=== PATIENT | female | born 1990 | race African-American/Black ===

== ENCOUNTER 2017-02-25 06:55 | Inpatient (IN) | payer OTHER ==
[~2017-02-25] VITALS: Ht 172.7 cm; Wt 82.0 kg
[2017-02-25] MEDS ORDERED: EPHEDrine SULFATE 50 MG/5 ML SYG ONE (07:00)
[2017-02-25 07:15] VITALS: Ht 172.7 cm; Wt 82.0 kg
[2017-02-25] MEDS ORDERED: LACTATED RINGER'S 1,000 ML IV SCH (07:19)
[2017-02-25] MEDS ORDERED: MISOPROSTOL 200 MCG TAB PR PRN ×2 (07:30→14:00)
[2017-02-25] MEDS ORDERED: METHYLERGONOVINE 0.2 MG INJ IM PRN ×2 (07:30→14:00)
[2017-02-25] MEDS ORDERED: OXYTOCIN 30 UNITS/LR 500 ML IV SCH ×2 (07:30)
[2017-02-25] MEDS ORDERED: LIDOCAINE 1% (MPF) 30 ML INJ INJ PRN (07:30)
[2017-02-25] MEDS ORDERED: CARBOPROST 250 MCG INJ IM PRN ×2 (07:30→14:00)
[2017-02-25] MEDS ORDERED: CLINDAMYCIN 900 MG/D5W (PMX) 50 ML IVPB SCH (07:30)
[2017-02-25] MEDS ORDERED: BUTORPHANOL 2 MG INJ IV PRN (07:30)
[2017-02-25] MEDS ORDERED: OXYTOCIN 30 UNITS/LR 500 ML IV PRN ×2 (07:30→14:00)
[2017-02-25] MEDS ORDERED: PRENAT PO (07:35)
--- NOTE | 2017-02-25 07:59 | TRIAGE ---
OB Triage Datetime Report Generated by CPN: 02/25/2017 07:58 Datetime: 02/25/2017 07:38 Assessment Type: Admission Assessment Vaginal Bleeding: None Maternal Assessment Level of Consciousness: Fully Conscious DTR's/Clonus: DTRs 2+; No Clonus Headache: Denies Blurred Vision: No Respiratory Effort: Unlabored; Regular Rhythm; Equal Expansion Breath Sounds, Left: Clear and Equal Breath Sounds, Right: Clear and Equal Nausea/Vomiting: Denies RUQ Epigastric Pain: Denies Facial Edema: None Fall Risk Assessment History of Falling: (0) No Secondary Diagnosis: (0) No Ambulatory Aid: (0) Bedrest/Nurse Assist IV Therapy: (0) No Gait: (0) Normal/Bedrest/Immobile Mental Status: (0) Oriented to Own Ability Fall Score: 0 Fall Risk Score Definition: No Risk: No action required Labor Evaluation Frequency: 3-4 Heart Rate FHR Baseline Rate: 135 Variability: Moderate 6-25 bpm Accelerations: 10X10 Decelerations: None Category: Category I Pain Assessment Pain Scale: 8 Pain Presence: Intermittent Pain Type: Cramping; Contraction Pain Location: Abdomen Pain Goal: 3 Membrane Status: Bulging Nitrazine: Positive Datetime: 02/25/2017 07:37 Stage of : OB Triage Datetime: 02/25/2017 07:30 Time of Arrival: 02/25/2017 07:00 EGA: 33.1 Arrived By: Ambulance Datetime: 02/25/2017 07:16 Membrane Status: Intact Datetime: 02/25/2017 07:15 Stage of : OB Triage Vaginal Exam Dilatation (cms): 4.0 Effacement (%): 100 Station: -3 Exam By: S MARTÍNEZ Vaginal Bleeding: Scant Cervix, Consistency: Soft Cervix, Position: Midposition Datetime: 02/25/2017 07:05 Vaginal Exam Dilatation (cms): 4.5 Membrane Status: Ruptured Membranes Ruptured Date/Time: 02/25/2017 02:45 Membranes Rupture Method: Spontaneous Amniotic Fluid Color: Clear Nitrazine: Positive ROM Test Kit: COLLECTED Datetime: 02/25/2017 07:00 Assessment Type: Triage Maternal Assessment Level of Consciousness: Fully Conscious DTR's/Clonus: DTRs 2+; No Clonus Headache: Denies Blurred Vision: No Respiratory Effort: Labored Breath Sounds, Left: Clear and Equal Breath Sounds, Right: Clear and Equal Nausea/Vomiting: Denies RUQ Epigastric Pain: Denies Lower Extremities Edema: None Upper Extremities Edema: None Facial Edema: None Fall Risk Assessment History of Falling: (0) No Secondary Diagnosis: (0) No Ambulatory Aid: (0) Bedrest/Nurse Assist IV Therapy: (0) No Comment: ARM HAS SOME OLD CUT WILSON Datetime: 02/25/2017 06:55 Time of Arrival: 02/25/2017 06:52 Arrived By: Stretcher Arrived From: Other Hospital Chief Complaint: RUPTURED MEMBRANE AT 0245, CONTRACTIONS Movement: Present Contractions: Irregular Rupture of Membranes: Ruptured Vaginal Bleeding: None Vaginal Discharge: Present Patient Complaints: Contractions Time Provider Notified: 02/25/2017 07:00 Provider Notified: SABAS Initial Plan: EFM, ROM PLUS, NITRIZINE, U/S FOR EFW
[2017-02-25] MEDS ORDERED: LACTATED RINGER'S 1,000 ML IV PRN (08:00)
[2017-02-25 08:06] LABS: ADD SCAN DIFF NO
[2017-02-25] MEDS ORDERED: LACTATED RINGER'S 1,000 ML IV ONE (08:07)
[2017-02-25 08:12] LABS: BASOPHILS % 0.3 % (0.0-2.0); EOSINOPHILS # 0.2 10^3/ul (0.0-0.5); EOSINOPHILS % 1.9 % (0.0-7.0); HEMATOCRIT 37.9 % (37.0-47.0); HEMOGLOBIN 13.1 g/dl (12.0-16.0); LYMPHOCYTES # 1.8 10^3/ul (0.8-2.9); LYMPHOCYTES % 16.1 % (15.0-51.0); MEAN CORPUSCULAR HEMOGLOBIN 30.8 pg (29.0-33.0); MEAN CORPUSCULAR HGB CONC 34.6 g/dl (32.0-37.0); MEAN CORPUSCULAR VOLUME 89.2 fl (82.0-101.0); MEAN PLATELET VOLUME 12.8 fl (7.4-10.4); MONOCYTE # 0.9 10^3/ul (0.3-0.9); MONOCYTES % 8.7 % (0.0-11.0); NEUTROPHIL # 7.8 10^3/ul (1.6-7.5); NEUTROPHILS % 71.5 % (39.0-77.0); PLATELET COUNT 213 10^3/UL (140-415); RED BLOOD COUNT 4.25 10^6/ul (4.20-5.40); WHITE BLOOD COUNT 10.9 10^3/ul (4.8-10.8)
--- NOTE | 2017-02-25 08:25 | RADRPT ---
PROCEDURE: US OB. CLINICAL INDICATION: Size and dates TECHNIQUE: Multiple sonographic images of the pelvis and gravid uterus were obtained. The images were reviewed on a PACS workstation. COMPARISON: No prior studies are available for comparison. FINDINGS: There is a single viable intrauterine gestation. Cardiac activity is present with 152 beats per min sami. There is a breech presentation. The placenta is left lateral. There is no evidence for an abruption or placenta previa. Measurements were made in order to determine age. The results are as follows: BPD =8.4 cm HC =30.3 cm AC =29.7 cm FL =6.0 cm Estimated gestational age of approximately 33 weeks and 1 day based on ultrasound measurements. Clinical age: 33 weeks and 1 day. The estimated date of delivery is 04/14/2017, based on ultrasound measurements. The EFW = 2090 g, 36%, based on LMP age. RPTAT: AA IMPRESSION: Single viable intrauterine gestation of approximately 33 weeks and 1 day based on ultrasound measur ements. .Paresh Rodriguez MD, Date Time Electronically viewed and signed by .Paresh Rodriguez MD, on 02/25/2017 08:25 .S/
[2017-02-25] MEDS ORDERED: CITRIC ACID/SODIUM CITRATE 15 ML CUP PO ONE (08:30)
[2017-02-25] MEDS ORDERED: FAMOTIDINE 20 MG INJ IV ONE (08:30)
[2017-02-25] MEDS ORDERED: METOCLOPRAMIDE 10 MG INJ IV ONE (08:30)
[2017-02-25 08:31] LABS: INR 0.86; PARTIAL THROMBOPLASTIN TIME 28.6 Sec (25.0-35.0); PROTIME 11.7 Sec (12.2-14.2); PT RATIO 0.9
[2017-02-25] MEDS ORDERED: morphine SULFATE/PF (10 MG/10 ML) INJ ONE (08:44)
[2017-02-25] MEDS ORDERED: FENTAnyl 50 MCG/ML VIAL ONE (08:44)
[2017-02-25] MEDS ORDERED: PHENYLephrine (100 MCG/ML) 5ML SYG ONE (09:03)
[2017-02-25] MEDS ORDERED: OXYTOCIN 30 UNITS/LR 500 ML IV ONE (09:27)
[2017-02-25 09:35] LABS: CBV Base Excess -2.8 mmol/L; CBV COHb 1.1 %; CBV Oxygen Sat 70.8 mmHG; CBV Total Hemglobin 12.7 g/dl; Cord Blood Venous AADO2 73.6 mmHg; Cord Blood Venous pO2 29.8 mmHG (15.0-45.0); Fraction OxyHgb Cord Venous 69.5 %; MODE ROOM AIR; MetHgb Cord Venous 0.8 %; Sample Type CBV
[2017-02-25] MEDS ORDERED: ONDANSETRON 4 MG INJ IV PRN ×2 (10:00)
[2017-02-25] MEDS ORDERED: HYDROmorphONE 1 MG/ML SYG IV PRN ×2 (10:00)
[2017-02-25] MEDS ORDERED: ZOLPIDEM 5 MG TAB PO PRN (10:00)
[2017-02-25] MEDS ORDERED: DIPHENHYDRAMINE 50 MG INJ IV PRN (10:00)
[2017-02-25] MEDS ORDERED: PROCHLORPERAZINE 10 MG INJ IV PRN ×2 (10:00)
[2017-02-25] MEDS ORDERED: MEPERIDINE 25 MG INJ IV PRN (10:00)
[2017-02-25] MEDS ORDERED: KETOROLAC 30 MG INJ IV PRN (10:00)
[2017-02-25] MEDS ORDERED: FENTAnyl 50 MCG/ML VIAL IV PRN (10:00)
[2017-02-25] MEDS ORDERED: HYDROmorphONE (0.2 MG/ML) 10ML SYG IV PRN (10:00)
[2017-02-25] MEDS ORDERED: NALOXONE (0.4 MG/ML) INJ IV PRN (10:00)
[2017-02-25 10:05] LABS: ADD UMIC YES; UR BILIRUBIN (Dip) NEGATIVE (NEGATIVE); UR BLOOD (Dip) 2+ (NEGATIVE); UR CLARITY CLEAR (CLEAR); UR COLOR LT. YELLOW (YELLOW); UR GLUCOSE (Dip) NEGATIVE (NEGATIVE); UR KETONES (Dip) NEGATIVE (NEGATIVE); UR LEUKOCYTE ESTERASE (Dip) 1+ (NEGATIVE); UR NITRITE (Dip) NEGATIVE (NEGATIVE); UR TOTAL PROTEIN (Dip) NEGATIVE (NEGATIVE); UR UROBILINOGEN (Dip) 1.0 E.U./dL (0.1-1.0)
--- NOTE | 2017-02-25 10:12 | HP ---
DATE OF ADMISSION: 02/25/2017 HISTORY OF PRESENT ILLNESS: The patient is a 26-year-old G1, P0, who presents at 33-1/2 weeks, liz sfer of care from [facility] for labor. The patient has had no care during the . She presented to [facility] complaining of uterine contractions. The patient was subsequently transferred from [facility] to [facility]. Upon exam ination, the patient was found to be initially 4 cm dilated and completely effaced, with a bulging b ag. Ultrasound was done which showed the infant was in breech presentation. The patient was having regular uterine contractions and advanced labor. The patient had cervical changes to 5 cm. The pa tient ruptured, fluid in the vagina. At this point the patient consented for a primary sec tion. PAST MEDICAL HISTORY: None. PAST SURGICAL HISTORY: None. OB HISTORY: None. examination was normal. PHYSICAL EXAMINATION: HEART: Regular rhythm. LUNGS: Clear to auscultation bilaterally. ABDOMEN: Soft. No rebound or guarding. Fundal height is 34 cm. EXTREMITIES: There is no edema. GENITALIA: On examination the patient is 5 cm, feet in the vagina, ruptured. Sullivan is category 1 tr acing. ASSESSMENT: This is a 26-year-old with no care at 33-1/2 weeks, with PPROM, in active labo r, breech presentation. The patient was consented for primary section. The risks and benef its were discussed. The risks of infection, bleeding, damage to organs, plus need for blood transfu fariba were all discussed with the patient. Patient understood the risks and consented to the procedu re. Will take the patient to the OR for primary section. Dictated By: JUANA HOLLINGSWORTH MD /NTS Conf#: [id number] DID#: [id number]
--- NOTE | 2017-02-25 10:20 | OPR ---
DATE OF OPERATION: 02/25/2017 PREOPERATIVE DIAGNOSES: 1. Intrauterine at 33-1/2 weeks. 2. No care. 3. Active labor, breech presentation, premature rupture of membranes. POSTOPERATIVE DIAGNOSES: 1. Intrauterine at 33-1/2 weeks. 2. No care. 3. Active labor, breech presentation, premature rupture of membranes. PROCEDURE PERFORMED: Primary low transverse section. SURGEON: Juana Hollingsworth MD PAINT PREP TECHNICIAN: Clay Denise MD ANESTHESIOLOGIST: Genesis Morgan MD FINDINGS: 1. Viable in breech presentation. 2. Normal tubes and ovaries. COMPLICATIONS: None. SPECIMENS: Placenta and cord gases. ESTIMATED BLOOD LOSS: 600 mL. INDICATIONS: The patient is a 26-year-old G1, P0, who presents at 33-1/2 weeks in labor. The patie nt has had no care and was found to be in active labor, 4 to 5 cm, rupture of membranes, wi th footling breech in the vagina. The patient was consented for primary section. DESCRIPTION OF PROCEDURE: The patient was taken to the operating room where spinal was found to be adequate. The patient was then prepped, draped in normal sterile fashion. ID was confirmed. Using a scalpel, a Pfannenstiel incision made, incision taken down to the underlying fascia. The fascia nicked in the midline and extended laterally in both directions using bimanual extension. The fasci a was taken off the rectus muscle superiorly. Midline identified, peritoneum entered bluntly. Blad miguel blade placed in. Low segment incision made on the uterus. Uterine incision was then extended w ith manual extension. The infant was then delivered via breech extraction without any complications . Cord gases taken, cord blood taken. Placenta was then delivered. Uterus exteriorized, cleared o f all blood clots and debris. Uterine incision was closed with 1 Monocryl in running fashion. A se cond imbricating layer was also placed and the uterus placed back in abdominal cavity. The uterine incision was clean, dry and intact. The blood was cleared from the gutters. On second look, the ut erine incision was still clean, dry and intact. The rectus muscles and peritoneum were brought back together in the midline using 2-0 Vicryl. The fascia was closed with 0 Vicryl. The subcutaneous f at was closed with 2-0 plain. The skin was stapled. The patient tolerated the procedure well. Lap, needle counts were correct x2. The patient was stable to recovery. Dictated By: JUANA HOLLINGSWORTH MD /WANDER Conf#: [id number] DID#: [id number]
[2017-02-25 11:46] LABS: BARBITURATES Negative (NEGATIVE); BENZODIAZEPINES Negative (NEGATIVE); CANNABINOIDS Positive (NEGATIVE); COCAINE Negative (NEGATIVE); OPIATES Negative (NEGATIVE)
[2017-02-25 12:36] VITALS: BP 116/74; PULSE 68; RESP 20
[2017-02-25] MEDS: LACTATED RINGER'S 1,000 ML IV SCH ×2 (13:53→19:21)
[2017-02-25] MEDS ORDERED: LANOLIN 7 GM TUBE TOP PRN (14:00)
[2017-02-25] MEDS ORDERED: IBUPROFEN 800 MG TAB PO SCH (14:00)
[2017-02-25] MEDS ORDERED: ACETAMINOPHEN/CODEINE #3 TAB PO PRN (14:00)
[2017-02-25 14:03] VITALS: BP 123/84; PULSE 67; RESP 18
[2017-02-25] MEDS: OXYTOCIN 30 UNITS/LR 500 ML IV SCH ×2 (15:18→21:46)
[2017-02-25 16:00] VITALS: BP 134/70; PULSE 79; RESP 18
[2017-02-25] MEDS: DIPHENHYDRAMINE 50 MG INJ IV PRN ×2 (16:32→20:54)
[2017-02-25] MEDS: KETOROLAC 30 MG INJ IV PRN (19:22)
[2017-02-25 20:30] VITALS: BP 121/59; PULSE 97; RESP 19
[2017-02-26] MEDS: KETOROLAC 30 MG INJ IV PRN ×2 (01:04→06:24)
[2017-02-26 01:12] VITALS: BP 126/57; PULSE 78; RESP 19
[2017-02-26] MEDS: LACTATED RINGER'S 1,000 ML IV SCH (03:01)
[2017-02-26 05:07] VITALS: BP 118/70; PULSE 103; RESP 19
[2017-02-26 07:48] LABS: ADD SCAN DIFF NO
[2017-02-26 07:55] LABS: ABNORMAL IP MESSAGE 1; BASOPHILS % 0.2 % (0.0-2.0); EOSINOPHILS % 0.2 % (0.0-7.0); HEMATOCRIT 35.3 % (37.0-47.0); HEMOGLOBIN 12.1 g/dl (12.0-16.0); LYMPHOCYTES # 1.2 10^3/ul (0.8-2.9); LYMPHOCYTES % 7.8 % (15.0-51.0); MEAN CORPUSCULAR HEMOGLOBIN 30.6 pg (29.0-33.0); MEAN CORPUSCULAR HGB CONC 34.3 g/dl (32.0-37.0); MEAN CORPUSCULAR VOLUME 89.1 fl (82.0-101.0); MEAN PLATELET VOLUME 12.2 fl (7.4-10.4); MONOCYTE # 1.6 10^3/ul (0.3-0.9); MONOCYTES % 9.9 % (0.0-11.0); NEUTROPHIL # 12.8 10^3/ul (1.6-7.5); NEUTROPHILS % 81.1 % (39.0-77.0); PLATELET COUNT 202 10^3/UL (140-415); RED BLOOD COUNT 3.96 10^6/ul (4.20-5.40); RED CELL DISTRIBUTION WIDTH 13.1 % (11.5-14.5); WHITE BLOOD COUNT 15.8 10^3/ul (4.8-10.8)
[2017-02-26 08:30] VITALS: BP 129/83; PULSE 94
[2017-02-26] MEDS: MULTIVIT/MIN/FOLATE/IRON/PREN TAB PO SCH (09:41)
[2017-02-26] MEDS: ACETAMINOPHEN/CODEINE #3 TAB PO PRN ×2 (09:41→16:54)
[2017-02-26 10:35] LABS: RUBELLA ANTIBODY - IGG 4.53 index
[2017-02-26] MEDS: IBUPROFEN 800 MG TAB PO SCH ×2 (12:32→20:09)
--- NOTE | 2017-02-26 13:08 | QN ---
Documentation Comment POD #1 s/p primary c/s for breech, active labor, 33 weeks; No PNC. Baby is in NICU. Pt is doing well with good pain management. + flatus. T=98.0 BP 129/83 Dressing clean, dry and intact. Lochia minimal. Ext NT, no edema. P: Continue care. MACKENZIE CEDILLO MD Feb 26, 2017 13:08
[2017-02-26 20:09] VITALS: BP 120/71; PULSE 93
[2017-02-27] MEDS: ACETAMINOPHEN/CODEINE #3 TAB PO PRN ×3 (00:40→15:56)
[2017-02-27 04:05] VITALS: BP 122/77
[2017-02-27] MEDS: DIPHENHYDRAMINE 50 MG CAP PO PRN ×2 (04:50→17:59)
[2017-02-27] MEDS: IBUPROFEN 800 MG TAB PO SCH ×3 (05:36→22:22)
[2017-02-27 08:45] VITALS: BP 128/85; PULSE 96; RESP 16
--- NOTE | 2017-02-27 08:58 | QN ---
Documentation Comment POD#2- Laborist Rounding Note Pt doing well. Ludy POs, ambulating and voiding w/o difficulty. not yet passing flatus VS 97.9 128/85 105(immediately from shower), 96 by RN 16 Gen: well appearing, NAD CV: RRR, nl s1s2 Resp: coarse rhonchi throughout Abd: soft, min TTP, FF at umbilicus Inci: c/d/i with maryann Humaira: cleean pad (recently changed per pt) Ext: symmetric, no edema, nontender Labs: Admission Hgb 13.1-> EBL 600ml -> POD#1 Hgb 12.1 A/P: POD#2 progressing towards postop/ milestones -continue routine postop/ care -encourage ambulation to assist with passing flatus -likely rhonchi 2/2 hx of tobacco use. recommended CXR given resp exam, however pt declined stating "it's just mucous" and declines coughing to repeat exam thereafter 2/2 concern for pain -given pos Utox for amphetamines, DCFS case open, appreciate [employer] support -anticipate d/c home POD#3 if meeting all postop goals by then ULYSSES BENJAMIN MD Feb 27, 2017 08:58
[2017-02-27] MEDS: MULTIVIT/MIN/FOLATE/IRON/PREN TAB PO SCH (09:17)
[2017-02-27 15:55] VITALS: BP 124/83; PULSE 86; RESP 18
[2017-02-27 16:43] LABS: ALANINE AMINOTRANSFERASE 30 IU/L (13-69); ASPARTATE AMINO TRANSFERASE 18 IU/L (15-46)
[2017-02-27 20:00] VITALS: BP 117/72; PULSE 88; RESP 18
[2017-02-28] MEDS: ACETAMINOPHEN/CODEINE #3 TAB PO PRN (00:15)
[2017-02-28] MEDS: IBUPROFEN 800 MG TAB PO SCH ×2 (06:19→14:59)
[2017-02-28 07:45] VITALS: BP 120/85; PULSE 75; RESP 18
[2017-02-28] MEDS: MULTIVIT/MIN/FOLATE/IRON/PREN TAB PO SCH (09:00)
--- NOTE | 2017-02-28 14:30 | DS ---
Date/Time of Note Date/Time of Note DATE: 02/28/17 TIME: 14:19 Obstetrical Discharge Record Final Diagnosis Final Diagnosis: not delivered Other Final Diagnosis 33 weeks premature labor and delivery Breech presentation Vaginal Delivery Other Delivery information new born Male , 8 and 9 weight 2225 grams Section Section: Primary Primary Indication Breech presentation Complications Labor Rupture of Membranes: Yes Condition on Discharge Physical Assessment Voiding: Yes Bowel Movement: Yes Breast: Soft, non-tender Fundus: Firm Abdomen and Incision: healing well Episiotomy: Laboratory Tests Test 02/27/17 16:03 Aspartate Amino Transf (AST/SGOT) 18IU/L Alanine Aminotransferase (ALT/SGPT) 30IU/L Current Medications Medications (Trade) Dose Ordered Sig/Allison Route PRN Reason Start Time Stop Time Status Last Admin Dose Admin Lactated Ringer's 1,000 ml @ 125 mls/hr Q8H IV 02/25/17 07:19 02/25/17 13:58 DC 02/25/17 07:30 Clindamycin HCl/ Dextrose (Cleocin 900 Mg/ D5W (Pmx)) 50 ml @ 100 mls/hr Q8 IVPB 02/25/17 07:30 02/25/17 13:58 DC Butorphanol Tartrate (Stadol) 2 mg Q2H PRN IV PAIN 02/25/17 07:30 02/25/17 13:58 DC Lidocaine 30 ml 30 ml ONCE PRN INJ EPISIOTOMY/TEARING 02/25/17 07:30 02/25/17 13:58 DC Oxytocin/Lactated Ringer's 500 ml @ 125 mls/hr ONCE -MAY REPEAT X1 IV 02/25/17 07:30 02/25/17 13:58 DC Oxytocin/Lactated Ringer's 500 ml @ 125 mls/hr ONCE IV 02/25/17 07:30 02/25/17 13:58 DC 02/25/17 10:49 Lactated Ringer's 1,000 ml @ 2,000 mls/hr Q30M PRN IV PRE-EPIDURAL BOLUS 02/25/17 08:00 02/25/17 13:59 DC Oxytocin/Lactated Ringer's 500 ml @ 0 mls/hr ONCE PRN IV For Hemorrhage Management 02/25/17 07:30 02/25/17 13:59 DC Methylergonovine Maleate (Methergine) 0.2 mg ONCE PRN IM VAGINAL BLEEDING 02/25/17 07:30 02/25/17 13:59 DC Carboprost Tromethamine (Hemabate) 250 mcg ONCE PRN IM VAGINAL BLEEDING 02/25/17 07:30 02/25/17 13:59 DC Misoprostol 1000 mcg 1,000 mcg ONCE PRN UT VAGINAL BLEEDING 02/25/17 07:30 02/25/17 13:59 DC Lactated Ringer's (Lr) 1,000 ml @ 1,000 mls/hr Q1H ONCE IV 02/25/17 08:07 02/25/17 09:06 DC Citric Acid/ Sodium Citrate (Bicitra) 30 ml PRE-PROCEDURE ONCE PO 02/25/17 08:30 02/25/17 08:31 DC 02/25/17 08:45 Famotidine (Pepcid Iv) 20 mg pre-procedure ONCE IV 02/25/17 08:30 02/25/17 08:31 DC 02/25/17 08:45 Metoclopramide HCl (Reglan) 10 mg ONCE ONCE IV 02/25/17 08:30 02/25/17 08:31 DC 02/25/17 08:45 Fentanyl (Sublimaze) 100 mcg STK-MED ONCE .ROUTE 02/25/17 08:44 02/25/17 08:45 DC Morphine Sulfate (Duramorph) 10 mg STK-MED ONCE .ROUTE 02/25/17 08:44 02/25/17 08:45 DC Phenylephrine HCl 500 mcg 500 mcg STK-MED ONCE .ROUTE 02/25/17 09:03 02/25/17 09:04 DC Oxytocin/Lactated Ringer's 500 ml @ ud STK-MED ONCE IV 02/25/17 09:27 02/25/17 09:28 DC Hydromorphone HCl (Dilaudid (Rec)) 0.4 mg PACU ORDER PRN IV PAIN 02/25/17 10:00 02/25/17 13:59 DC Fentanyl (Sublimaze) 25 mcg PACU ORDER PRN IV PAIN 02/25/17 10:00 02/25/17 13:59 DC Ketorolac Tromethamine (Toradol) 30 mg PACU ORDER PRN IV PAIN 02/25/17 10:00 02/25/17 13:59 DC Ondansetron HCl (Zofran Inj) 4 mg PACU ORDER PRN IV NAUSEA AND/OR VOMITING 02/25/17 10:00 02/25/17 13:59 DC Prochlorperazine (Compazine Inj) 5 mg PACU ORDER PRN IV NAUSEA AND/OR VOMITING 02/25/17 10:00 02/25/17 13:59 DC Meperidine HCl (Demerol) 25 mg PACU ORDER PRN IV POST-OP RIGORS 02/25/17 10:00 02/25/17 13:59 DC Diphenhydramine HCl (Benadryl) 25 mg PACU ORDER PRN IV PRURITUS 02/25/17 10:00 02/25/17 15:00 DC 02/25/17 12:11 Naloxone HCl (Narcan) 0.1 mg Q2M PRN IV FOR RESP RATE 8 OR LESS 02/25/17 10:00 02/26/17 08:51 DC Ketorolac Tromethamine (Toradol) 30 mg Q6H PRN IV PAIN 02/25/17 10:00 02/26/17 08:51 DC 02/26/17 06:24 Hydromorphone HCl (Dilaudid) 0.2 mg Q3H PRN IV PAIN LEVEL 1-5 02/25/17 10:00 02/26/17 08:51 DC Hydromorphone HCl (Dilaudid) 0.4 mg Q3H PRN IV PAIN LEVEL 6-10 02/25/17 10:00 02/26/17 08:51 DC Diphenhydramine HCl (Benadryl) 25 mg Q6H PRN IV ITCHING 02/25/17 10:00 02/26/17 08:51 DC 02/25/17 20:54 Ondansetron HCl (Zofran Inj) 4 mg Q6H PRN IV NAUSEA AND/OR VOMITING 02/25/17 10:00 02/26/17 08:51 DC Prochlorperazine (Compazine Inj) 10 mg ONCE PRN IV NAUSEA AND/OR VOMITING 02/25/17 10:00 02/26/17 08:51 DC Zolpidem Tartrate (Ambien) 5 mg HS MAY REPEAT X 1 PRN PO INSOMNIA 02/25/17 10:00 02/26/17 08:51 DC Miscellaneous Information Duramorph: 0.2 mg Spi... GIVEN XX 02/25/17 10:00 02/25/17 13:59 DC Lactated Ringer's 1,000 ml @ 125 mls/hr Q8H IV 02/25/17 13:53 02/27/17 04:31 DC 02/26/17 03:01 Oxytocin/Lactated Ringer's 500 ml @ 125 mls/hr Q4H IV 02/25/17 13:53 02/25/17 21:48 DC 02/25/17 15:18 Acetaminophen/ Codeine Phosphate (Tylenol No.3) 1 tab Q4H PRN PO PAIN LEVEL 4-6 02/25/17 14:00 Acetaminophen/ Codeine Phosphate (Tylenol No.3) 2 tab Q4H PRN PO PAIN LEVEL 7-10 02/25/17 14:00 02/28/17 00:15 Ibuprofen (Motrin) 800 mg Q8 PO 02/25/17 14:00 02/25/17 14:18 DC Simethicone (Mylicon) 160 mg Q8H PRN PO DISTENSION/GAS/BLOATING 02/25/17 14:00 Lanolin 1 applic 1 applic BEDSIDE MEDICATION PRN TOP BEDSIDE FOR MEJIA TO NIPPLES 02/25/17 14:00 Oxytocin/Lactated Ringer's 500 ml @ 0 mls/hr ONCE PRN IV For Hemorrhage Management 02/25/17 14:00 Methylergonovine Maleate (Methergine) 0.2 mg ONCE PRN IM VAGINAL BLEEDING 02/25/17 14:00 Carboprost Tromethamine (Hemabate) 250 mcg ONCE PRN IM VAGINAL BLEEDING 02/25/17 14:00 Misoprostol (Cytotec) 1,000 mcg ONCE PRN UT VAGINAL BLEEDING 02/25/17 14:00 Prenat Multivit/ Cook Syrup Maker/Iron/Folic Ac ( S) 1 tab DAILY PO 02/26/17 09:00 02/27/17 09:17 Ibuprofen (Motrin) 800 mg Q8 PO 02/26/17 12:00 02/28/17 06:19 Diphenhydramine HCl (Benadryl) 50 mg Q6H PRN PO ITCHING 02/26/17 21:00 02/27/17 17:59 Calf Tenderness: No Patient Condition: Good FOROOHAR,HESHMAT MD Feb 28, 2017 14:29
== END 2017-02-28 16:05 | disposition home or self-care (01) | DRG 766 ==
LOC: L-D 06:55 → OBT 06:55 → L-D 07:00 → PP1 13:21
PROVIDERS: ADMIT Obstetrics & Gynecology; ATTEND Obstetrics & Gynecology
PROC: 10D00Z1 Extraction of Products of Conception, Low, Open Approach (ICD-10-PCS; principal; 2017-02-25 09:30)
DX: O60.14X0 Preterm labor third trimester with preterm delivery third trimester, not applicable or unspecified (principal); Z37.0 Single live birth; Z3A.33 33 weeks gestation of pregnancy
CPT/HCPCS: 36415; 76815; 80307; 81001; 82803; 84450; 84460; 85025; 85610; 85730; 86592; 86703; 86762; 86850; 86885; 86900; 86901; 87340; 88307; 99464; G0463; J1200; J1885; J2274; J2370; J2590; J2765; J2790; J3010; J7120

== ENCOUNTER 2017-03-07 21:25 | Emergency (ER) | END 2017-03-08 00:23 | disposition home or self-care (01) | DX: Z48.02 Encounter for removal of sutures (principal) ==

== ENCOUNTER 2018-03-18 00:46 | Emergency (ER) | END 2018-03-18 03:48 | disposition home or self-care (01) ==